=== PATIENT | male | born 1950 | race Caucasian/White ===

== ENCOUNTER 2023-07-09 07:31 | Inpatient (IN) ==
[2023-07-09 08:30] LABS: ABS Basophils 0.1 10^3/uL (0.0-0.1); ABS Eosinophils 0.1 10^3/uL (0.0-0.5); ABS Lymphocytes 0.9 10^3/uL (1.0-4.8); ABS Monocytes 0.6 10^3/uL (0.0-1.1); ABS Neutrophils 7.1 10^3/uL (1.5-7.6); Eosinophil % 1.5 %; Hematocrit 23.5 % (38-53); Hemoglobin 7.8 g/dL (13.2-16.3); Lymphocyte % 10.4 %; Mean Corpuscular Hemoglobin 33.4 pg (27-33); Mean Corpuscular Hgb Conc 33.3 g/dL (31-36); Mean Corpuscular Volume 100.2 fL (80-97); Mean Platelet Volume 7.8 fL (7.5-11.2); Platelet Count 230 10^3/uL (150-450); Red Blood Count 2.35 10^6/uL (4.06-5.63); Red Cell Distribution Width 14.8 % (12-17); White Blood Count 8.8 10^3/uL (3.6-10.2)
[2023-07-09 08:50] LABS: Albumin/Globulin Ratio 0.8 (1-3); Calcium 8.4 mg/dL (8.6-10.3); Creatinine, Serum 2.35 mg/dL (0.67-1.17); Globulin 3.7 g/dL (2-4); Potassium 3.8 mmol/L (3.5-5.0); Total Bilirubin 0.6 mg/dL (0.2-1.0); Total Protein 6.7 g/dL (6.4-8.9); eGFR CKD-EPI 28.2 (>60)
[2023-07-09 11:51] LABS: INR 1.04 (0.83-1.13)
[2023-07-09] MEDS ORDERED: CIPROFLOXACIN 200 MG IV ONE (15:00)
[2023-07-09] MEDS ORDERED: fentaNYL 100 mcg/2 ml 50 MCG/ML VIAL ONE (15:18)
[2023-07-09 18:21] LABS: % Iron Saturation 8 % (15-55); .Transferrin 183 mg/dL (203-362); Iron < 20 ug/dL (50-212); Total Iron Binding Capacity 256 mcg/dL (250-450); Unsaturated Iron Binding 236 ug/dL
[2023-07-09] MEDS ORDERED: Enoxaparin 30 MG/0.3 ML SYR SUBCUT SCH (18:30)
[2023-07-09 18:43] LABS: Ferritin 71.7 ng/mL (24-336)
[2023-07-09 18:46] LABS: Folate 13.62 ng/mL (5.90-24.80)
[2023-07-09 18:47] LABS: Vitamin B12 931 pg/mL (180-914)
[2023-07-09] MEDS ORDERED: Polyethylene Glycol 3350 17 GM PACKET PO PRN (21:30)
[2023-07-09] MEDS: Senna TAB 8.6 mg TAB PO SCH (22:38)
[2023-07-09] MEDS: Polyethylene Glycol 3350 17 GM PACKET PO SCH (22:38)
[2023-07-10 03:21] LABS: Urine Appearance Turbid; Urine Bacteria Absent (Absent); Urine Bilirubin Negative (Negative); Urine Blood 3+ (Negative); Urine Glucose Negative (Negative); Urine Ketones Negative (Negative); Urine Nitrite Negative (Negative); Urine Protein 3+(>=500 mg/dL) (Negative); Urine Red Blood Cell 3+(>10/hpf) (Absent); Urine Specific Gravity 1.028 (1.002-1.030); Urine Urobilinogen Negative (Negative); Urine White Blood Cell 3+(>20/hpf) (Absent)
[2023-07-10 03:22] LABS: Urine Color Red
[2023-07-10 06:25] LABS: Hematocrit 20.8 % (38-53); Hemoglobin 7.1 g/dL (13.2-16.3); Mean Corpuscular Hemoglobin 33.8 pg (27-33); Mean Corpuscular Volume 99.5 fL (80-97); Mean Platelet Volume 7.9 fL (7.5-11.2); Platelet Count 218 10^3/uL (150-450); Red Blood Count 2.09 10^6/uL (4.06-5.63); White Blood Count 7.8 10^3/uL (3.6-10.2)
[2023-07-10 06:36] LABS: INR 1.08 (0.83-1.13)
[2023-07-10 06:45] LABS: Albumin 2.6 g/dL (3.2-5.2); Albumin/Globulin Ratio 0.8 (1-3); Creatinine, Serum 2.49 mg/dL (0.67-1.17); Globulin 3.2 g/dL (2-4); Magnesium 2.2 mg/dL (1.9-2.7); Potassium 3.5 mmol/L (3.5-5.0); Total Bilirubin 0.6 mg/dL (0.2-1.0); Total Protein 5.8 g/dL (6.4-8.9); eGFR CKD-EPI 26.3 (>60)
[2023-07-10] MEDS: Polyethylene Glycol 3350 17 GM PACKET PO SCH (09:58)
[2023-07-10] MEDS: CMCS:Estradiol 1 mg TAB (NF) PO SCH (10:00)
[2023-07-10] MEDS: Cefepime 1 GM in Dextrose 1 GM/50 ML BAG IV SCH ×2 (10:06→20:05)
[2023-07-10] MEDS: PTO: Abiraterone 250 mg TAB (NF) PO SCH (15:55)
[2023-07-10] MEDS: Senna TAB 8.6 mg TAB PO SCH (20:56)
[2023-07-11 06:47] LABS: ABS Basophils 0.1 10^3/uL (0.0-0.1); ABS Eosinophils 0.1 10^3/uL (0.0-0.5); ABS Monocytes 0.6 10^3/uL (0.0-1.1); ABS Neutrophils 6.7 10^3/uL (1.5-7.6); Eosinophil % 1.1 %; Hematocrit 24.1 % (38-53); Hemoglobin 8.2 g/dL (13.2-16.3); Lymphocyte % 11.8 %; Mean Corpuscular Hemoglobin 33.3 pg (27-33); Mean Corpuscular Hgb Conc 34.2 g/dL (31-36); Mean Corpuscular Volume 97.3 fL (80-97); Platelet Count 224 10^3/uL (150-450); Red Blood Count 2.47 10^6/uL (4.06-5.63); Red Cell Distribution Width 15.3 % (12-17); White Blood Count 8.4 10^3/uL (3.6-10.2)
[2023-07-11 07:32] LABS: Calcium 8.2 mg/dL (8.6-10.3); Creatinine, Serum 2.26 mg/dL (0.67-1.17); Potassium 3.6 mmol/L (3.5-5.0); eGFR CKD-EPI 29.5 (>60)
[2023-07-11] MEDS: Cefepime 1 GM in Dextrose 1 GM/50 ML BAG IV SCH ×2 (09:19→20:09)
[2023-07-11] MEDS: Polyethylene Glycol 3350 17 GM PACKET PO SCH (09:32)
[2023-07-11] MEDS: PTO: Abiraterone 250 mg TAB (NF) PO SCH (09:32)
[2023-07-11] MEDS: CMCS:Estradiol 1 mg TAB (NF) PO SCH (09:32)
[2023-07-11] MEDS ORDERED: Ferric Gluconate IV 250 MG in NS 0.9% 250 ml 200 ML IVPB ONE (09:45)
[2023-07-11 13:43] LABS: Urine Appearance Turbid; Urine Bilirubin Negative (Negative); Urine Blood 3+ (Negative); Urine Color Yellow; Urine Glucose Negative (Negative); Urine Ketones Negative (Negative); Urine Nitrite Negative (Negative); Urine Protein 2+(100 mg/dL) (Negative); Urine Specific Gravity 1.013 (1.002-1.030); Urine Urobilinogen Negative (Negative)
[2023-07-11 14:14] LABS: Urine Bacteria Absent (Absent); Urine Red Blood Cell 3+(>10/hpf) (Absent); Urine White Blood Cell Trace(0-5/hpf) (Absent)
[2023-07-11] MEDS: Senna TAB 8.6 mg TAB PO SCH (20:51)
[2023-07-12 06:51] LABS: Hematocrit 22.4 % (38-53); Hemoglobin 7.6 g/dL (13.2-16.3); Mean Corpuscular Hemoglobin 33.2 pg (27-33); Mean Corpuscular Hgb Conc 34.1 g/dL (31-36); Mean Corpuscular Volume 97.3 fL (80-97); Mean Platelet Volume 8.3 fL (7.5-11.2); Platelet Count 201 10^3/uL (150-450); Red Cell Distribution Width 15.3 % (12-17); White Blood Count 8.5 10^3/uL (3.6-10.2)
[2023-07-12 07:06] LABS: Creatinine, Serum 2.29 mg/dL (0.67-1.17); Potassium 3.7 mmol/L (3.5-5.0)
[2023-07-12] MEDS: Cefepime 1 GM in Dextrose 1 GM/50 ML BAG IV SCH (08:08)
[2023-07-12] MEDS: PTO: Abiraterone 250 mg TAB (NF) PO SCH (08:09)
[2023-07-12] MEDS: CMCS:Estradiol 1 mg TAB (NF) PO SCH (08:09)
[2023-07-12] MEDS: Polyethylene Glycol 3350 17 GM PACKET PO SCH (08:10)
[2023-07-12 10:11] VITALS: BP 115/79
== END 2023-07-12 13:00 | disposition home or self-care (01) | DRG 698 ==
LOC: ED 07:31 → EDHOLD 13:27 → SUATTDRO 13:27 → MED 19:35
PROVIDERS: ADMIT Internal Medicine; ATTEND Internal Medicine